=== PATIENT | female | born 1980 | race Caucasian/White ===

== ENCOUNTER 2021-01-09 20:28 | Emergency (ER) | payer OTHER ==
[~2021-01-09] VITALS: Ht 157.5 cm; Wt 88.6 kg
[~2021-01-09 20:28] MED LIST: MULT-1203 PO
[2021-01-09] MEDS: MethylPREDNISolone SOD SUCC 125 MG/2 ML VIAL IVP ONE (21:49)
[2021-01-09] MEDS: FAMOTIDINE 10 MG/ML 2 ML VIAL IVP ONE (21:49)
[2021-01-09 22:54] VITALS: BP 130/76
== END 2021-01-09 23:43 | disposition home or self-care (01) ==
LOC: EMS 20:30
DX: T78.1XXA Other adverse food reactions, not elsewhere classified, initial encounter (principal); J45.909 Unspecified asthma, uncomplicated; F41.9 Anxiety disorder, unspecified; F32.9 Major depressive disorder, single episode, unspecified; Z79.899 Other long term (current) drug therapy; Z88.8 Allergy status to other drugs, medicaments and biological substances; Z91.018 Allergy to other foods; X58.XXXA Exposure to other specified factors, initial encounter
CPT/HCPCS: 96374; 96375; 99284; J2930; J3490